=== PATIENT | male | born 1970 | race Caucasian/White ===

== ENCOUNTER 2017-11-22 22:27 | Emergency (ER) | payer OTHER ==
[2017-11-22 22:42] VITALS: BP 153/95; PULSE 70; RESP 16; TEMP 98.3
[2017-11-22] MEDS ORDERED: LIDOCAINE 1% INJ 10MG/ML (20 ML MDV) SQ STA (22:47)
[2017-11-22] MEDS ORDERED: DIPH,PERTUS(ACELL)TETVAC-LF 0.5 ML VIAL IM ONE (22:47)
--- NOTE | 2017-11-22 22:51 | ED ---
Head Injury HPI - General Source: patient, RN notes reviewed, old records reviewed Mode of arrival: ambulatory Limitations: no limitations <Sarai Delgadillo - Last Filed: 11/23/17 11:20> <Nelly Lezama - Last Filed: 11/24/17 00:28> - General Chief complaint: Head Injury Stated complaint: HEAD LAC Time Seen by Provider: 11/22/17 22:43 - History of Present Illness Initial comments: Patient is a 47-year-old male present to return still complaining of a laceration over the back of the scalp. Patient reports that he was helping his friend hang a deer within the deer came down in the inhaler as cut the back of his head. He states he has no loss conscious. Denies any neck pain. No other injury. His tetanus is not up-to-date. Patient states that he has had no other symptoms related to the laceration. (Sarai Delgadillo) - Related Data Allergies/Adverse reactions: Allergies Allergy/AdvReac Type Severity Reaction Status Date / Time No Known Allergies Allergy Verified 11/22/17 22:41 Review of Systems ROS Other: All systems not noted in ROS Statement are negative. <Sarai Delgadillo - Last Filed: 11/23/17 11:20> ROS Other: All systems not noted in ROS Statement are negative. <Nelly Lezama - Last Filed: 11/24/17 00:28> ROS Statement: Those systems with pertinent positive or pertinent negative responses have been documented in the HPI. Past Medical History Past Medical History: Hyperlipidemia History of Any Multi-Drug Resistant Organisms: None Reported Additional Past Surgical History / Comment(s): open reduction of right ankle fracture. Past Psychological History: No Psychological Hx Reported Smoking Status: Former smoker Past Alcohol Use History: Occasional Past Drug Use History: None Reported <Sarai Delgadillo - Last Filed: 11/23/17 11:20> General Exam Limitations: no limitations General appearance: alert, in no apparent distress Head exam: Present: normocephalic, normal inspection. Absent: atraumatic ( Patient has a 2 inch laceration over the right posterior scalp. Laceration is bleeding well controlled at this time.) Eye exam: Present: normal appearance, PERRL, EOMI. Absent: scleral icterus, conjunctival injection, periorbital swelling ENT exam: Present: normal exam, normal oropharynx, mucous membranes moist Neck exam: Present: normal inspection. Absent: tenderness, meningismus, lymphadenopathy Respiratory exam: Present: normal lung sounds bilaterally. Absent: respiratory distress, wheezes, rales, rhonchi, stridor Cardiovascular Exam: Present: regular rate, normal rhythm, normal heart sounds. Absent: systolic murmur, diastolic murmur, rubs, gallop, clicks GI/Abdominal exam: Present: soft, normal bowel sounds. Absent: distended, tenderness, guarding, rebound, rigid Extremities exam: Present: normal inspection, full ROM, normal capillary refill. Absent: tenderness, pedal edema, joint swelling, calf tenderness Back exam: Present: normal inspection Neurological exam: Present: alert, oriented X3, CN II-XII intact <Sarai Delgadillo - Last Filed: 11/23/17 11:20> <Nelly Lezama - Last Filed: 11/24/17 00:28> - General Exam Comments Initial Comments: Well-appearing 47-year-old male. No significant distress. (Sarai Delgadillo) Vital Signs 11/22/17 22:37 Temperature 98.3 F Pulse Rate 70 Respiratory 16 Rate Blood Pressure 153/95 O2 Sat by Pulse 97 Oximetry Procedures - Laceration Laceration #1 Site: scalp Size (cm): 3 Description: linear Depth: simple, single layer Anesthetic Used: lidocaine 1% Anesthesia Technique: local infiltration Amount (mls): 5 Pre-repair: wound explored, irrigated extensively Type of Sutures: other (raina) Number of Sutures: 5 Patient Tolerated Procedure: well, no complications <Sarai Delgadillo - Last Filed: 11/23/17 11:20> Medical Decision Making <Sarai Delgadillo - Last Filed: 11/23/17 11:20> <Nelly Lezama P - Last Filed: 11/24/17 00:28> - Medical Decision Making 47 year old with scalp laceration from dear antler falling and hitting his head. Patient had no LOC, no neck pain or other concerns. Laceration was cleaned and closed with 5 raina. Discussed monitoring for infection. REturn parameters discussed. Given updated TDAP. (Sarai Delgadillo) I was available for consultation in the emergency department. The history and physical exam were done by the Midlevel Provider. Medical decision making was done by the Midlevel Provider. The Midlevel Provider did not contact me for this patient's care. I was not directly involved in this patient's care. (Nelly Lezama) Disposition Is patient prescribed a controlled substance at d/c from ED?: No Time of Disposition: 23:17 <Sarai Delgadillo - Last Filed: 11/23/17 11:20> <Nelly Lezama - Last Filed: 11/24/17 00:28> Clinical Impression: Scalp laceration Disposition: HOME SELF-CARE Condition: Good Instructions: Staple Care (ED) Additional Instructions: Patient advised to follow-up with primary care provider. Return to emergency department if any alarming signs or symptoms occur. Please return to the emergency room in 8-10 days to have raina removed. Please leave wound covered for the first 24-48 hours and then leave open to air after that time. Please use clean soap and water to clean the suture area to prevent scabbing over the top of your raina. Please watch for any signs of infection which may include but not limited to increased pain, swelling, redness , fever or chills. Please return to the emergency room if any signs of infection do occur. Please return to the emergency room for any other concerns or complications. Referrals: Es Amin MD [Primary Care Provider] - 1-2 days
--- NOTE | 2017-11-23 08:42 | TCOM ---
Documentation Clarification OP Dear POWER Dewey: Please do addendum to ED report that describes the laceration repair of the Scalp. Please include the length and depth of the repair. Thank you, Dia [facility] Operations Coordinator If you have any question, Please contact manager of global at [phone] [facility]
== END 2017-11-22 23:20 | disposition home or self-care (01) ==
LOC: EC 22:27
DX: S01.01XA Laceration without foreign body of scalp, initial encounter (principal); Z23 Encounter for immunization; Z87.891 Personal history of nicotine dependence; W22.8XXA Striking against or struck by other objects, initial encounter; Y92.89 Other specified places as the place of occurrence of the external cause
CPT/HCPCS: 90715; 99283; 12002; 90471; J2001

== ENCOUNTER → 2020-08-16 | Outpatient (CLI) | payer OTHER ==
[2020-08-16 18:56] LABS: Basophils # (A) 0.09 X 10*3/uL (0.00-0.10); Basophils % (A) 1.1 %; Eosinophils # (A) 0.17 X 10*3/uL (0.04-0.35); Eosinophils % (A) 2.1 %; HGB 15.6 g/dL (13.0-17.0); Lymphocytes # (A) 1.57 X 10*3/uL (0.90-5.00); Lymphocytes % (A) 19.7 %; MCH 30.6 pg (27.0-32.0); MCHC 33.9 g/dL (32.0-37.0); MCV 90.2 fL (80.0-97.0); Mean Platelet Volume 12.3 fL (9.5-12.2); Monocytes # (A) 0.67 X 10*3/uL (0.20-1.00); Monocytes % (A) 8.4 %; Neutrophils # (A) 5.45 X 10*3/uL (1.80-7.70); Neutrophils % (A) 68.4 %; Platelet Count 219 X 10*3/uL (140-440); RDW 12.8 % (11.5-14.5); WBC 7.97 X 10*3/uL (4.50-10.00)
== END | disposition home or self-care (01) ==
LOC: LABWHC1 12:35
PROVIDERS: ATTEND Psychiatry & Neurology Pain Medicine
DX: R90.82 White matter disease, unspecified (principal); R42 Dizziness and giddiness
CPT/HCPCS: 36415; 82040; 82042; 82784; 83916; 85025